=== PATIENT | female | born 1970 | race Caucasian/White ===

== ENCOUNTER 2020-03-27 14:00 | Outpatient (CLI) | payer OTHER, SELFPAY ==
--- NOTE | ~2020-03-27 | MM_ITS ---
EXAMINATION: MM screening [place] BI w kayla HISTORY: Screening mammogram TECHNIQUE: Craniocaudal and mediolateral oblique 3-D tomosynthesis images were obtained and synthetic 2-D images were generated. CAD analysis was submitted and interpreted. COMPARISON: Comparison to multiple prior studies sequentially, with oldest reviewed study dated 04/02. BREAST PARENCHYMAL COMPOSITION: The breasts are heterogeneously dense, which may obscure small masses . FINDINGS: There is no evidence of suspicious mass, calcification, or architectural distortion to sugg est malignancy in either breast. There has been no suspicious interval change. IMPRESSION: 1. No mammographic evidence of malignancy. 2. Recommend routine screening mammography in one year. BI-RADS Category 1: Negative Reviewed, dictated and finalized at location A.
== END 2020-03-27 14:01 | disposition home or self-care (01) ==
LOC: ANHIMG 14:02
PROVIDERS: PCP Family Medicine; Visit Provider Family Medicine
DX: Z12.31 Encounter for screening mammogram for malignant neoplasm of breast (principal)
CPT/HCPCS: 77063; 77067

== ENCOUNTER → 2021-04-02 12:27 | Outpatient (CLI) | payer OTHER, SELFPAY ==
--- NOTE | ~2021-04-02 | MM_ITS ---
EXAMINATION: MM screening [place] BI w kayla HISTORY: Screening mammogram TECHNIQUE: Craniocaudal and mediolateral oblique 3-D tomosynthesis images were obtained and synthetic 2-D images were generated. Bilateral rotated lateral cc views. CAD analysis was submitted and interp reted. COMPARISON: 03/27/2020, 09/10/2018, 07/14/2017 bilateral digital screening mammogram examinations BREAST PARENCHYMAL COMPOSITION: The breasts are heterogeneously dense, which may obscure small masses . FINDINGS: There is no evidence of suspicious mass, calcification, or architectural distortion to sugg est malignancy in either breast. There has been no suspicious interval change. IMPRESSION: 1. No mammographic evidence of malignancy. 2. Recommend routine screening mammography in one year. BI-RADS Category 1: Negative Reviewed, dictated and finalized at location A.
== END ==
PROVIDERS: PCP Family Medicine; Visit Provider Family Medicine
DX: Z12.31 Encounter for screening mammogram for malignant neoplasm of breast (principal)
CPT/HCPCS: 77063; 77067

== ENCOUNTER 2022-07-22 08:06 | Outpatient (CLI) | payer OTHER, SELFPAY ==
--- NOTE | ~2022-07-22 | MM_ITS ---
EXAMINATION: MM screening [place] BI w kayla HISTORY: Screening TECHNIQUE: Craniocaudal and mediolateral oblique 3-D tomosynthesis images were obtained and synthetic 2-D images were generated. CAD analysis was submitted and interpreted. COMPARISON: Comparison to multiple prior studies sequentially, with oldest reviewed study dated 04/02. BREAST PARENCHYMAL COMPOSITION: Breast composed of scattered areas of fibroglandular density FINDINGS: There are new focal asymmetries in the left breast superiorly and inferiorly on MLO view. T he right breast is stable without evidence for malignancy. IMPRESSION: 1. New left breast asymmetries. 2. Additional mammographic views and possible breast ultrasound are recommended. BI-RADS Category 0: Incomplete: Needs additional imaging evaluation. Reviewed, dictated and finalized at location A. CONTROL ENGINEER IMPRESSION: 1. New left breast asymmetries. 2. Additional mammographic views and possible breast ultrasound are recommended . BI-RADS Category 0: Incomplete: Needs additional imaging evaluation.
== END 2022-07-22 08:07 | disposition home or self-care (01) ==
LOC: ANHIMG 08:08
PROVIDERS: PCP Family Medicine; Visit Provider Family Medicine
DX: Z12.31 Encounter for screening mammogram for malignant neoplasm of breast (principal); R92.8 Other abnormal and inconclusive findings on diagnostic imaging of breast
CPT/HCPCS: 77063; 77067

== ENCOUNTER 2022-08-13 12:26 | Outpatient (CLI) | payer OTHER, SELFPAY ==
--- NOTE | ~2022-08-13 | MMUS_ITS ---
EXAMINATION: MM diagnostic [place] LT w kayla, US breast LT limited HISTORY: Left breast asymmetries on screening mammogram TECHNIQUE: Additional 3-D tomosynthesis images of the left breast were performed and synthetic 2-D im ages were generated. CAD analysis was submitted and interpreted. High resolution limited left breast ultrasound was performed. COMPARISON: 07/22/2022, 04/02/7021, 03/27/2020, 09/10/2018 FINDINGS: MAMMOGRAPHIC FINDINGS: An area of possible architectural distortion is again suggested with spot compression in the MLO proj ection and a slightly upper breast. No definite associated mass or suspicious calcification are ident ified. No persistent asymmetry is identified in the lower breast with spot compression. ULTRASOUND: There is no evidence of focal abnormal solid or cystic mass in the vicinity of the mammographic findi ng in question. IMPRESSION: 1. Possible left breast architectural distortion without definite sonographic correlate. 2. Stereotactic core tomosynthesis guided biopsy is recommended. BI-RADS category 4, suspicious findings. Reviewed, dictated and finalized at location A. GE MANAGEMENT IMPRESSION: 1. Possible left breast architectural distortion without definite sonographic c orrelate. 2. Stereotactic core tomosynthesis guided biopsy is recommended. BI-RADS category 4, suspicious findings.
== END 2022-08-13 12:27 | disposition home or self-care (01) ==
LOC: ANHIMG 12:33
PROVIDERS: PCP Family Medicine; Visit Provider Family Medicine
DX: R92.8 Other abnormal and inconclusive findings on diagnostic imaging of breast (principal)
CPT/HCPCS: 76642; 77061; 77065; G0279

== ENCOUNTER 2023-07-10 09:45 | Outpatient (CLI) | payer OTHER, SELFPAY ==
[2023-08-04 21:43] LABS: Result NEGATIVE
== END 2023-07-10 09:46 | disposition home or self-care (01) ==
LOC: ANHGOSHLAB 09:47
PROVIDERS: PCP Family Medicine; Visit Provider Family Medicine
DX: N64.9 Disorder of breast, unspecified (principal); Z80.3 Family history of malignant neoplasm of breast
CPT/HCPCS: 81162

== ENCOUNTER 2024-01-29 15:07 | Outpatient (CLI) | payer OTHER, SELFPAY ==
--- NOTE | ~2024-01-29 | XR_ITS ---
EXAMINATION: XR lumbar spine min 4V DATE: 01/29/2024 15:26 INDICATION: Low back pain. TECHNIQUE: 5 views of lumbar spine including standing views were obtained. COMPARISON: None. FINDINGS: Bone alignment is normal. Vertebral body heights are normal. There are endplate osteophytes at T12-L1. Intervertebral disc heights are normal. There is multilevel facet joint osteoarthritis, m oderate in lower lumbar spine. IMPRESSION: 1. Mild lumbar spondylosis. Reviewed, dictated and finalized at location A. IMPRESSION: 1. Mild lumbar spondylosis.
== END 2024-01-29 15:08 ==
PROVIDERS: PCP Chiropractor; Visit Provider Chiropractor
DX: M47.896 Other spondylosis, lumbar region (principal)
CPT/HCPCS: 72110

== ENCOUNTER 2024-01-31 15:55 | Emergency (ER) | payer OTHER, SELFPAY ==
--- NOTE | ~2024-01-31 | XR_ITS ---
Portable chest x-ray Comparison: None Clinical History: Syncope Findings: Lungs are clear, without focal consolidation or pleural effusion. Cardiomediastinal silho uette is unremarkable. Bones and soft tissues are unremarkable. Impression: Normal chest. Reviewed, dictated and finalized at location . Impression: Normal chest.
[2024-01-31 16:01] VITALS: BP 143/94; PULSE 92; RESP 16; TEMP 36.4; O2SAT 97
[2024-01-31 16:05] VITALS: BP 115/69; PULSE 77; RESP 23; TEMP 36.4; O2SAT 97
[2024-01-31 16:06] VITALS: PULSE 78
--- NOTE | 2024-01-31 16:27 | ECG_ITS ---
SEE SCANNED COPY FOR CONFIRMED REPORT MTDD
[2024-01-31] MEDS: SODIUM CHLORIDE 0.9% IV 1,000 ML 999 ML IV CONT ×2 (16:47→18:21)
[2024-01-31 16:53] LABS: Basophils Absolute Auto 0.1 K/mm3 (0.0-0.1); Basophils Percent Auto 0.6 % (0.2-1.2); Eosinophils Absolute Auto 0.1 K/mm3 (0-0.3); Eosinophils Percent Auto 1.4 % (0-4.4); Hematocrit 34.7 % (37.0-47.0); Hemoglobin 11.7 g/dL (12.0-15.0); Immature Granulocyte Absolute 0.02 K/mm3 (0.00-0.031); Immature Granulocyte Percent A 0.3 % (0-0.5); Lymphocytes Absolute Auto 2.02 K/mm3 (0.9-3.2); Lymphocytes Percent Auto 25.6 % (18.3-44.2); Mean Corpuscular HGB Conc 33.7 g/dl (32-36); Mean Corpuscular Volume 91.8 fl (80-100); Mean Platelet Volume 10.2 fl (7.4-10.4); Monocytes Absolute Auto 0.5 K/mm3 (0.1-0.6); Monocytes Percent Auto 6.5 % (2.6-8.5); Neutrophils Absolute Auto 5.2 K/mm3 (1.3-6.7); Neutrophils Percent Auto 65.6 % (45.5-73.1); Platelet Count Result 198 k/mm3 (150-375); Red Blood Count 3.78 M/mm3 (4.2-5.4); Red Cell Distribution Width 12.3 % (11.5-14.5); White Blood Count 7.9 K/mm3 (4.5-10.0)
--- NOTE | 2024-01-31 16:55 | ED.SYNCOPE ---
HPI - Syncope General Chief Complaint: Syncope Stated Complaint: syncopy Time Seen by Provider: 01/31/24 16:21 History of Present Illness HPI narrative: Patient is a 53-year-old female who presents to the emergency department this evening after a syncopal episode which occurred at a local festival. Patient states that she was outdoors all day and admits to drinking beer and margaritas. Patient who was standing when she got lightheaded and has been and a friend were standing next to her and were able to hold and lower her down to a seated position. states that it took about 1-2 minutes when the patient woke. Patient admits that she does have a history of syncopal episodes but usually when she is sick with COVID or influenza. She denies any cardiovascular disease and per hospital, patient is very active, runs and sweats on a regular basis. Patient currently admits mild nausea but denies any additional symptoms including headaches, focal weakness, numbness and tingling. Related Data Home Medications Medication Instructions Recorded Confirmed No Home Medications 05/13/23 01/14/24 Allergies Allergy/AdvReac Type Severity Reaction Status Date / Time No Known Allergies Allergy Verified 01/31/24 15:59 Review of Systems Review of Systems: All systems are reviewed and are negative unless stated otherwise in the HPI. [facility] Past Medical History Medical History Esophageal web determined by endoscopy fed/08/17/19: balloon dilatation Gastroesophageal reflux History of basal cell cancer 2007 Stress incontinence (female) (male) Surgical History Surgical History History of bladder suspension procedure History of mandibular surgery Family History Family History Sibling Family history of schizophrenia Mother Lung cancer Bone cancer Liver cancer Grandparent Carcinoma of colon Maternal grandma Breast cancer Maternal Grandma Heart disease Cerebrovascular accident Other Bone cancer Maternal great aunts Carcinoma of colon Father Diabetes mellitus Heart disease Social History Social History Smoking status: Never smoker Second hand tobacco smoke exposure: No Alcohol intake: never Alcohol use details: Occasional Substance use: never Substance use type: does not use Lack of Transportation: No Lack of Food: Never True Current Housing: I Have Housing Concerned About Future Housing: No Difficulty Paying Gas/Electric Bills: No Difficulty Paying for Meds: No Currently Unemployed: No Education: Master's Degree or Higher Difficulty w/ Childcare or Family Care: No Living arrangements: with family Occupation/Education: retired Gender identity (if verbalized by the patient): Female Sexual Orientation (if Verbalized by the Patient): Straight or Heterosexual Spiritual care concerns: No Agree to blood products: Yes Exam Narrative: General: Alert, awake, afebrile, in no acute distress. HEENT: PERRL, no rhinorrhea, no post nasal drip, oropharynx clear. Cardiovascular: Regular rate and rhythm, no murmurs, rubs or gallops, no peripheral edema. Respiratory: Clear to auscultation bilaterally, no tachypnea, no wheezing, no rhonchi, no rubs, no respiratory distress. Abdomen: Soft, nontender, nondistended, no rebound, no guarding, no peritoneal signs. Musculoskeletal: No joint swelling or deformity, normal muscle tone. Skin: No rashes or petechia, no signs of infection. Neurological: Alert and oriented to person, place, and time. Follows all commands. 5/5 motor strength of the bilateral upper and lower extremity, sensation intact bilateral lower and left upper extremity, cranial nerves 2-12 grossly intact, no focal deficits, speech
[2024-01-31 16:59] VITALS: BP 101/64; PULSE 77; RESP 18; O2SAT 100
[2024-01-31 17:07] LABS: Alanine Aminotransferase 15 U/L (6-35); Albumin Level 3.6 g/dL (3.5-5.1); Alkaline Phosphatase 59 U/L (38-126); Anion Gap 8 mmol/L (4-12); Aspartate Amino Transferase 22 U/L (14-36); Bilirubin,Total 0.3 mg/dL (0.2-1.3); Blood Urea Nitrogen 18 mg/dL (7-17); Calcium 8.8 mg/dL (8.4-10.2); Carbon Dioxide 21 mmol/L (22-30); Chloride 109 mmol/L (98-107); Estimated CRCL calculation 57 ml/min; Estimated Glomerular Filt Rate > 60; Glucose 105 mg/dL (65-110); Magnesium 1.9 mg/dL (1.6-2.3); Potassium 3.7 mmol/L (3.4-5.0); Sodium 138 mmol/L (137-145)
[2024-01-31 18:00] LABS: Troponin I < 0.012 ng/mL (0.000-0.034)
[2024-01-31] MEDS: ONDANSETRON INJ 4 MG/2 ML VIAL IV PUSH (18:21)
== END 2024-01-31 19:04 | disposition home or self-care (01) ==
PROVIDERS: Emergency Provider Emergency Medicine; PCP Family Medicine
DX: R55 Syncope and collapse (principal); K21.9 Gastro-esophageal reflux disease without esophagitis; N39.3 Stress incontinence (female) (male); Z85.828 Personal history of other malignant neoplasm of skin; I45.10 Unspecified right bundle-branch block
CPT/HCPCS: 36415; 71045; 80053; 83735; 84484; 85025; 93005; 96374; 99284; J2405; J7030

== ENCOUNTER 2024-04-08 06:41 | Day surgery (SDC) | payer OTHER, SELFPAY ==
[2024-02-05 05:50] VITALS: BMI 23.8
[2024-03-29 09:22] VITALS: BMI 22.2
--- NOTE | 2024-04-07 10:33 | WPDANESEPPF ---
Anes - Initial Pre Proc Eval Procedure: Operation Date: 04/08/24 08:30 Proposed Procedures p Diagnostic Colonoscopy - Fidel Nichols MD Date/Time: 04/07/24 10:33 Surgeon: Fidel Nichols MD Pre Op Diagnosis: Internal hemorrhoids Patient Data Age: 53 Gender: F Height: 1.6 m Weight: 57 kg Allergies Allergy/AdvReac Type Severity Reaction Status Date / Time No Known Allergies Allergy Verified 03/29/24 09:21 Home Medications Medication Instructions Recorded Confirmed Type No Home Medications 03/29/24 03/29/24 History Results Review: All pre-operative results and documents have been reviewed as part of the pre-operative evaluation. ON LICENSE OF [facility] Past Medical History Medical History Esophageal web determined by endoscopy 08/17/19: balloon dilatation Gastroesophageal reflux Hemorrhoids History of basal cell cancer 2007 History of pneumonia Sciatica Stress incontinence (female) (male) Surgical History Surgical History History of bladder suspension procedure History of mandibular surgery Family History Family History Sibling Family history of schizophrenia Mother Lung cancer Bone cancer Liver cancer Grandparent Carcinoma of colon Maternal grandma Breast cancer Maternal Grandma Heart disease Cerebrovascular accident Other Bone cancer Maternal great aunts Carcinoma of colon Father Diabetes mellitus Heart disease Social History Social History (Updated 02/04/24 @ 15:21 by Yvonne Laguna MA) Smoking status: Never smoker Second hand tobacco smoke exposure: No Alcohol intake: current Alcohol use details: Occasionally Substance use: never Substance use type: does not use Do You Feel Safe in your Home?: Yes Lack of Transportation: No Lack of Food: Never True Current Housing: I Have Housing Concerned About Future Housing: No Difficulty Paying Gas/Electric Bills: No Difficulty Paying for Meds: No Currently Unemployed: No Education: Master's Degree or Higher Difficulty w/ Childcare or Family Care: No Living arrangements: with family Occupation/Education: retired Gender identity (if verbalized by the patient): Female Sexual Orientation (if Verbalized by the Patient): Straight or Heterosexual Spiritual care concerns: No Agree to blood products: Yes Anes - Eval Final PreProcedure Day of Procedure 04/07/24 10:33 Patient weight: normal Results Review: All pre-operative results and documents have been reviewed as part of the pre-operative evaluation. Informed Consent: The patient's anesthetic plan and its attendant risks and benefits were discussed with the patient/family/POA. Questions were solicited and answers provided to the satisfaction of the patient/family/POA.
[2024-04-08 07:31] VITALS: BP 108/75; PULSE 73; RESP 16; TEMP 36.9; O2SAT 100; BMI 23.6
[2024-04-08] MEDS: LACTATED RINGERS 1,000 ML 150 ML IV CONT (07:36)
--- NOTE | 2024-04-08 07:54 | WPDANESEPPF ---
Anes - Initial Pre Proc Eval Procedure: Operation Date: 04/08/24 08:30 Proposed Procedures p Diagnostic Colonoscopy - Fidel Nichols MD Date/Time: 04/08/24 07:54 Surgeon: Fidel Nichols MD Pre Op Diagnosis: Internal hemorrhoids Patient Data Age: 53 Gender: F Height: 1.6 m Weight: 60.6 kg Last Vital Signs Temp 36.9 C 04/08/24 07:31 Pulse 73 04/08/24 07:31 Resp 16 04/08/24 07:31 BP 108/75 04/08/24 07:31 Pulse Ox 100 04/08/24 07:31 O2 Del Method Room Air 04/08/24 07:31 Allergies Allergy/AdvReac Type Severity Reaction Status Date / Time No Known Allergies Allergy Verified 04/08/24 07:16 Home Medications Medication Instructions Recorded Confirmed Type No Home Medications 03/29/24 03/29/24 History Patient hx anesthesia problems: none Family hx anesthesia problems: none Results Review: All pre-operative results and documents have been reviewed as part of the pre-operative evaluation. [facility] Past Medical History Medical History Esophageal web determined by endoscopy 08/17/19: balloon dilatation Gastroesophageal reflux Hemorrhoids History of basal cell cancer 2007 History of pneumonia Sciatica Stress incontinence (female) (male) Surgical History Surgical History History of bladder suspension procedure History of mandibular surgery Family History Family History Sibling Family history of schizophrenia Mother Lung cancer Bone cancer Liver cancer Grandparent Carcinoma of colon Maternal grandma Breast cancer Maternal Grandma Heart disease Cerebrovascular accident Other Bone cancer Maternal great aunts Carcinoma of colon Father Diabetes mellitus Heart disease Social History Social History Smoking status: Never smoker Second hand tobacco smoke exposure: No Alcohol intake: current Alcohol use details: Occasionally Substance use: never Substance use type: does not use Do You Feel Safe in your Home?: Yes Lack of Transportation: No Lack of Food: Never True Current Housing: I Have Housing Concerned About Future Housing: No Difficulty Paying Gas/Electric Bills: No Difficulty Paying for Meds: No Currently Unemployed: No Education: Master's Degree or Higher Difficulty w/ Childcare or Family Care: No Living arrangements: with family Occupation/Education: retired Gender identity (if verbalized by the patient): Female Sexual Orientation (if Verbalized by the Patient): Straight or Heterosexual Spiritual care concerns: No Agree to blood products: Yes Anes - Eval Final PreProcedure Day of Procedure 04/08/24 07:54 Patient weight: normal Heart: regular rate and rhythm Lungs: clear to auscultation Airway: Mallampati scale class II Neurological: alert and oriented Last oral intake: >/= 8 hours ASA classification: II Emergent: no Anesthetic plan: proceed Anesthesia type and monitoring: general GIVS and standard monitoring Results Review: All pre-operative results and documents have been reviewed as part of the pre-operative evaluation. Informed Consent: The patient's anesthetic plan and its attendant risks and benefits were discussed with the patient/family/POA. Questions were solicited and answers provided to the satisfaction of the patient/family/POA.
--- NOTE | 2024-04-08 07:56 | PM.HPGS ---
History of Present Illness History of Present Illness Consent: Risks, benefits, and alternatives have been discussed and questions answered. Patient agrees to proceed with procedure. Chief complaint: family history of colon polyps Narrative: Angelica Crews is a 53 year old female presents for follow-up colonoscopy. Patient's father had colon polyps. Her paternal grandmother had colon cancer. Patient reports that her current weight appetite and bowel movements are normal. Patient denies abdominal pain. She has had no bleeding. Previous colonoscopy 5 years ago was unremarkable. Review of Systems Review of Systems: All systems reviewed & are unremarkable except as noted in HPI and below PMFSH Past Medical History Medical History Esophageal web determined by endoscopy fed08/17/19: balloon dilatation Gastroesophageal reflux Hemorrhoids History of basal cell cancer 2007 History of pneumonia Sciatica Stress incontinence (female) (male) Surgical History Surgical History History of bladder suspension procedure History of mandibular surgery Family History Family History Sibling Family history of schizophrenia Mother Lung cancer Bone cancer Liver cancer Grandparent Carcinoma of colon Maternal grandma Breast cancer Maternal Grandma Heart disease Cerebrovascular accident Other Bone cancer Maternal great aunts Carcinoma of colon Father Diabetes mellitus Heart disease Social History Social History Smoking status: Never smoker Second hand tobacco smoke exposure: No Alcohol intake: current Alcohol use details: Occasionally Substance use: never Substance use type: does not use Do You Feel Safe in your Home?: Yes Lack of Transportation: No Lack of Food: Never True Current Housing: I Have Housing Concerned About Future Housing: No Difficulty Paying Gas/Electric Bills: No Difficulty Paying for Meds: No Currently Unemployed: No Education: Master's Degree or Higher Difficulty w/ Childcare or Family Care: No Living arrangements: with family Occupation/Education: retired Gender identity (if verbalized by the patient): Female Sexual Orientation (if Verbalized by the Patient): Straight or Heterosexual Spiritual care concerns: No Agree to blood products: Yes Meds Home Medications and Allergies Home Medications Medication Instructions Recorded Confirmed Type No Home Medications 03/29/24 03/29/24 History Allergies Allergy/AdvReac Type Severity Reaction Status Date / Time No Known Allergies Allergy Verified 04/08/24 07:16 Vital Signs Vital Signs - 24 hr 04/08/24 07:31 Temperature 98.5 F Pulse Rate 73 Respiratory Rate 16 Blood Pressure 108/75 Pulse Oximetry 100 Oxygen Delivery Room Air Exam Narrative: Physical exam reveals patient to be alert. Vital signs stable. HEENT exam is unremarkable. Patient is anicteric. Lungs are clear to auscultation and percussion. Is without murmur or extra sounds. Abdomen sounds are present soft nontender with no organomegaly. Digital external rectal exam is normal. Assessment and Plan Assessment and plan (1) Family history of colonic polyps: Code(s): Z83.719 - Family history of colon polyps, unspecified Status: Acute Assessment and Plan: Patient's father had patient's grandmother had colon cancer. Plan for surveillance colonoscopy now, consider at intervals in the future.
[2024-04-08 08:50] VITALS: BP 106/67; PULSE 64; RESP 14; O2SAT 100
[2024-04-08 09:00] VITALS: BP 101/74; PULSE 71; RESP 15; O2SAT 99
--- NOTE | 2024-04-08 09:25 | WPDANESPN ---
Anes - Prog Note Post-Op Date/Time: 04/08/24 09:25 Cardiovascular status: normal Respiratory status: normal Airway patency: baseline Mental status: baseline Post-Op hydration status: normal Vital Signs: Last Vital Signs Temp 36.9 C 04/08/24 07:31 Pulse 71 04/08/24 09:00 Resp 15 04/08/24 09:00 BP 101/74 04/08/24 09:00 Pulse Ox 99 04/08/24 09:00 O2 Del Method Room Air 04/08/24 09:00 Pain Score (VAS): 0/10 I/O: Intake & Output 04/07/24 04/08/24 04/08/24 23:59 07:59 15:59 Intake Total 400 Balance 400 Patient Feedback: Patient satisfied with anesthetic care.
== END 2024-04-08 09:30 | disposition home or self-care (01) ==
PROVIDERS: PCP Family Medicine; Visit Provider Internal Medicine Gastroenterology
PROC: 0DJD8ZZ Inspection of Lower Intestinal Tract, Via Natural or Artificial Opening Endoscopic (ICD-10-PCS; CPT 45378; principal; 2024-04-08 08:30)
DX: Z83.718 Family history of other colon polyps (principal); D12.8 Benign neoplasm of rectum
CPT/HCPCS: 45380

== ENCOUNTER 2024-04-08 07:00 | Outpatient (NON) | payer OTHER, SELFPAY | END 2024-04-08 07:01 | disposition home or self-care (01) | LOC: ANHLAB 04-09 07:15 | PROVIDERS: PCP Family Medicine; Visit Provider Internal Medicine Gastroenterology | DX: Z12.11 Encounter for screening for malignant neoplasm of colon (principal); Z83.719 Family history of colon polyps, unspecified | CPT/HCPCS: 88305 ==